=== PATIENT | male | born 1980 | race Caucasian/White ===

== ENCOUNTER 2025-06-03 12:11 | Emergency (ER) | payer BC, SELFPAY ==
--- NOTE | 2025-06-03 12:12 | ED_ITS ---
HPI - General Adult General Date Seen: 06/03/25 Chief complaint: Chest Pain Stated complaint: chest pain, numbing in left foot Time Seen by Provider: 06/03/25 12:12 History of Present Illness HPI narrative: 44 yo M presenting to the ER because of chest pain and left arm discomfort. He is generally healthy except for elevated BMI. No history of high blood pressure, high cholesterol, coronary disease, diabetes. He does have a family history of coronary disease. His father apparently had stents in his 50s. We do not know if his father was was 55 or above or below. Patient notes that for the past couple of days he has had a vague discomfort in the center of his chest that comes and goes. It tends to last for few minutes and then gets better on its. No clear exacerbating or alleviating factors. Does not seem to be related to position, exertion, exercise, or stress. He also notes that when he was laying in bed last night he seemed to be really focused on his chest and he could feel his heart beating. He thinks that was just because he was being vigilant. His heart did not really feel like it was skipping or irregular. This morning at around 9:30 a.m. or 10:00 a.m. he also had a funny feeling of numbness in his left triceps radiating down to his left forearm along with chest discomfort. 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 He also notes that he is fairly physically active when he has to load and unload his truck but does not seem to get chest pain during his activity. He has not had any cough. No shortness of breath. No fever. No recent travel. No swelling in his legs. No history of DVT or PE. Took aspirin 325 mg by mouth at about 10 30 or 11 this morning. Related Data Home Medications ?Medication ?Instructions ?Recorded ?Confirmed No Known Home Medications 03/30/2305/10 Allergies Allergy/AdvReac Type Severity Reaction Status Date / Time No Known Drug Allergies Allergy Verified 06/03/25 12:30 [facility] Medical History (Updated 06/03/25 @ 16:21 by Refugio Weinstein MD) Back problem ?M53.9 - Dorsopathy, unspecified (ICD-10) Family History (Updated 05/26/22 @ 08:24 by Katheryn Carr ~ [facility]) Mother Osteoarthritis Father Diabetes Sister Diabetes Social History (Updated 05/23/22 @ 16:03 by Janeen Cardenas ~ [facility], [facility]) Narrative: former user chewing tobacco Smoking Status: Never smoker Do you use any of these nicotine containing products: None Second hand tobacco smoke exposure: No How often do you have a drink containing alcohol: 4 or more times a week AUDIT-C Alcohol total score: 4 Non-prescribed substance use: denies use Exam Narrative: Exam Narrative: Constitutional: Appears well-developed and well-nourished. Alert. Conversant. Non toxic. HENT: Head: Atraumatic. Nose: Nose normal. Mouth/Throat: Oral mucosa is clear and moist. no trismus. Pharynx normal. Tonsils symmetric. No tonsillar enlargement, erythema, or exudate. Eyes: Conjunctivae normal. EOM normal. Pupils equal, round, and reactive to light. No scleral icterus. Neck: Normal range of motion. Neck supple. No tracheal deviation present. No JVD Cardiovascular: Bradycardic, regular rhythm. No gallop. No friction rub. No murmur heard. Symmetric radial and DP/PT artery pulses Pulmonary/Chest: Effort normal. No stridor. No respiratory distress. No wheezes. No rales. No rhonchi . No tenderness. Abdominal: Soft. No distension. No mass. No tenderness. No rebound. No guarding. Musculoskeletal: RUE: Normal range of motion. No tenderness. No deformity LUE: Normal range of motion. No tenderness. No deformity RLE: Normal range of motion. No edema. No tenderness. No deformity LLE: Normal range of motion. No edema. No tenderness. No deformity Neurological: Alert and oriented to person, place, and time. Normal strength. CN II-VII intact. No sensory deficit. GCS eye subscore is 4. GCS verbal subscore is 5. GCS motor subscore is 6. Normal coordination Skin: Skin is warm and dry. No rash noted. No pallor. Normal capillary refill. Psychiatric: Normal mood. Normal affect. Const: Vital Signs, click to edit/add: Vital Signs - 24 hr 06/03/25 12:26 Temperature 97.4 F L Pulse Rate [Pulse Oximeter] 73 Respiratory Rate 18 Blood Pressure [Ri ght Upper Arm] 117/77 Pulse Oximetry 96 Oxygen Delivery Me thod Room Air Course Vital Signs Vital signs: Initial Vital Signs Temperature 97.4 F L 06/03/25 12:26 Temperature Source Temporal Artery Scan 06/03/25 12:26 Pulse Rate 73 06/03/25 12:26 Respiratory Rate 18 06/03/25 12:26 Blood Pressure 117/77 06/03/25 12:26 Blood Pressure Mean 90 06/03/25 12:26 Blood Pressure Position Sitting 06/03/25 12:26 Pulse Oximetry 96 06/03/25 12:26 Oxygen Delivery Method Room Air 06/03/25 12:26 Vital Signs Temperature 97.4 F L 06/03/25 12:26 Pulse Rate 73 06/03/25 12:26 Respiratory Rate 18 06/03/25 12:26 Blood Pressure 117/77 06/03/25 12:26 Pulse Oximetry 96 06/03/25 12:26 Oxygen Delivery Method Room Air 06/03/25 12:26 Temperature 97.4 F L 06/03/25 12:26 Pulse Rate 73 06/03/25 12:26 Respiratory Rate 18 06/03/25 12:26 Blood Pressure 117/77 06/03/25 12:26 Pulse Oximetry 96 06/03/25 12:26 Oxygen Delivery Method Room Air 06/03/25 12:26 Medical Decision Making MDM Narrative Medical decision making narrative: This patient presents to the ER today for evaluation of chest pain for a couple of days, with Left arm numbness today. Differential was broad. No evidence of palpitations, syncope or other cardiac dysrhythmia. We considered possible ACS, however workup with EKG and troponin is negative. HEART score is 2. Given time since onset of symptoms, we did check an initial and 2 hour delta troponin. Both are normal. I do not think the patient needs to be admitted for further sets of enzymes. Based on his low risk for heart score, at this point does not need immediate stress testing. However would recommend close outpatient follow-up with primary care and if chest pain is persisting, consider further workup. He does not currently have a PCP so recommended follow-up with the [facility]. He will call tomorrow morning to make a follow-up appointment EKG shows no evidence for pericarditis. Clinical presentation not suggestive of myocarditis. Chest x-ray shows no evidence for pneumonia, pneumothorax, pulmonary edema, pleural effusion, rib fracture, cardiomegaly. Mediastinum is normal on the x-ray. The patient has no ripping or tearing pain through to the back and has symmetric pulses on exam, no other acute neuro findings so I doubt aortic dissection. Risk of radiation and contrast exposure would outweigh the benefit of CT angiogram. We considered PE for this patient. Low risk by wells and PERC negative. No wheezing or bronchospasm to suggest COPD/asthma. No signs of chest wall cellulitis, shingles, injury. With reasonable clinical confidence, I think the patient is safe for outpatient follow up. Discussed return precautions. Questions answered. Patient voices comfort with the plan. Lab Data Labs: Lab Results 06/03/25 06/03/25 Range/Units 13:50 15:50 WBC 7.56 (4.50-11.00) K/uL RBC 5.26 (4.30-5.90) m/uL Hgb 15.2 (13.5-17.5) gm/dL Hct 44.5 (37.0-53.0) % MCV 85 (80-100) fL MCH 29 (26-34) pg MCHC 34 (32-36) gm/dL RDW Coeff of Seble 12.0 (11.5-15.5) % Plt Count 190 (140-440) K/uL Neut % (Auto) 65.4 (42.0-72.0) % Lymph % (Auto) 24.5 (20-44) % Talbot % (Auto) 6.7 (0.0-11.0) % Eos % (Auto) 3.0 (0.0-7.0) % Baso % (Auto) 0.3 (0.0-3.0) % Neut # (Auto) 4.94 (1.7-7.0) K/uL Lymph # (Auto) 1.85 (0.90-2.90) K/uL Talbot # (Auto) 0.50 (0.00-0.90) K/UL Eos # (Auto) 0.23 (0.00-0.50) K/uL Baso # (Auto) 0.02 (0.00-0.30) K/uL Abs Immat Gran (auto) 0.01 (0.00-0.30) K/uL Imm/Tot Granulo (auto) 0.1 % Sodium 138 (135-149) mmol/L Potassium 4.2 (3.6-5.1) mmol/L Chloride 103 (96-114) mmol/L Carbon Dioxide 28 (20-32) mmol/L Anion Gap 7 (7-15) mEq/L BUN 16 (5-24) mg/dL Creatinine 1.0 (0.5-1.5) mg/dL Estimated Creat Clear 88.13 Estimated GFR 95 ml/min Glucose 88 (60-115) mg/dL Calcium 9.5 (8.4-10.6) mg/dL POC Troponin I 0.01 0.00 L (0.01-0.04) ng/ml Imaging Data Chest x-ray: Attestation: I have reviewed the pertinent imaging results. My impression: normal cardiac silhouette, clear lungs Radiologist's impression: IMPRESSION: Normal chest radiographs. ECG Data Attestation: I personally reviewed and interpreted this ECG as follows: Interpretation: Normal sinus rhythm Rate 70 MN interval 152 Normal QRS axis. No pathologic Q-waves. No ST segment elevation or depression. QTC 378/QTC 408 No old EKGs for comparison Repeat EKG at 4:07 p.m. Normal sinus rhythm. Rate 72 MN interval 156. Normal QRS axis. No ST segment elevation or depression. QTC 433 Discharge Plan Discharge Clinical Impression: Chest pain Patient Disposition: Home, Self-Care Condition: Stable Instructions: Chest Pain (DC) Additional Instructions: As we discussed, so far your workup is reassuring. No signs of heart attack or other serious cause for chest pain today. However, it is very important for you to have follow-up with you are regular doctor. To make an appointment with the primary care provider here in [place] you can call [phone] to make a ER follow-up visit. Please discuss your chest pain with your regular doctor. In the meantime, if you have any worsening symptoms such as more severe pain, pain that lasts longer, or new symptoms such as shortness of breath, palpitations, dizziness or fainting, fever, please return to the ER right away. Prescriptions: No Action No Known Home Medications Follow Up/Referrals: Provider,Not a Local [Primary Care Provider, Family Practice] Stand Alone Forms: The [employer] Info Instructions
--- OUTSIDE RECORDS SUMMARY | 2025-06-03 12:12 | XMS_ITS | Clinical Summary ---
Author Organization [employer] [facility] Address [address] [place] [id number] Care Team Providers Care Councilperson Name Role Phone Austen, CeliFamily Health Primary Care Provider Unavailable Allergies No known active allergies Medications HYDROcodone-ac etaminophen, 5-325 mg, (NORCO) per tabletIndicati ons:Acute right-sided low back pain without sciatica Take 1-2 tablets by mouth every 6 hours if needed for Pain Max acetaminophen dose: 4000mg in 24 hrs. 20 tablet 7 Active cyclobenzaprin e (FLEXERIL) 10 mg tabletIndicati ons:Acute right-sided low back pain without sciatica Take 1 tablet by mouth 3 times daily if needed for Muscle Spasm. 21 tablet 7 Active predniSONE (DELTASONE) 10 mg tabletIndicati ons:Acute right-sided low back pain without sciatica Take 3 twice daily for 3 days, then 2 BIDx 4 days, then, 1 BIDx 4 days, then QDx4 days 46 tablet 7 Active Active Problems No known active problems Immunizations Immunization Administration Dates Next Due Tdap 06/03/2008 Social History Tobacco Use Types Packs/Day Years Used Date Smoking Tobacco: Never Smokeless Tobacco: Current Chew Tobacco Cessation:Ready to Q uit: Yes; Counseling Given: Yes Comments:three cans a week Alcohol Use Standard Drinks/Week Comments Yes 0 (1 standard drink = 0.6 oz pur e alcohol) occ. 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 Gender Identity Not on file Sexual Orientation Not on file Obstetrics History Last Filed Vital Signs Vital Sign Reading Time Taken Comments Blood Pressure 120/68 03/11/2017 1:11 PM CDT Pulse 82 03/11/2017 1:11 PM CDT Temperature 36.8 C (98.2 F) 03/11/2017 1:11 PM CDT Respiratory Rate 18 03/11/2017 1:11 PM CDT Oxygen Saturation 97% 03/11/2017 1:11 PM CDT Inhaled Oxygen Concentration - - Weight 109.4 kg (241 lb 3.2 oz) 017 12:14 PM RESEARCH AND DEVELOPMENT CHEMIST Height 174 cm (5' 8.5) 11/09/2016 12:1 4 PM RESEARCH AND DEVELOPMENT CHEMIST Body Mass Index 36.14 11/09/2016 12:14 PM RESEARCH AND DEVELOPMENT CHEMIST Plan of Treatment Health Maintenance Due Date Last Done Comments Depression screening for age 12+ 1992 HIV for age 15-65 1995 Hepatitis C screening for ag e 18-79 1998 Hepatitis B series for 19+ ( 1 of 3 - 19+ 3-dose series) 1999 Lipids for age 35-44 2015 BMI (ht and wt on same day) for age 18+ 11/09/2017 11/09/2016 Tetanus booster 06/03/2018 06/03/2008 COVID-19 vaccine series (2023- season) 2024 Influenza Vaccine (#1) 2025 Pneumococcal series for age 6-49 Aged Out No longer eligible based on patient's age to complete this topic Care Teams Councilperson Relationship Specialty Start Date End Date Celi BoyceFamily Health PCP - General 03/11/17
--- OUTSIDE RECORDS SUMMARY | 2025-06-03 12:13 | XMS_ITS | Clinical Summary ---
Author Organization [facility] Address [address], [place] [address] Care Team Providers Care Tooth Cutter Clutch Name Role Phone Clinician, Not Found MD Primary Care Provider Un available Source Comments You are receiving this document as you are listed as the primary care provider,follow-up provider, or the patient has been referred to you for consultation.This is in compliance with the Medicare and[facility] System[facility] EHR Incentive Program,which states Providers who transition their patient to another setting of careor provider of care or refers their patient to another provider of care shouldprovide summary care record for each transition of care or referral. [facility] No known active allergies Medications No known medications Active Problems Problem Noted Date Diagnosed Date Obesity, Class II, BMI 35-39.9 02/06/2024 Tear of right biceps muscle 12/22/2023 Biceps tendinitis on right 12/22/2023 Immunizations Immunization Administration Dates Next Due Fluzone Qiv Multidose Vial 0.25 (6-35 Mos) 08/07 Influenza IIV4 (Quadrivalent) 0.5mL (47952) 06/09 Td (Tdvax) 07/09/1996 Tdap 06/21/2018,06/03/2008 Family History Medical History Relation Name Comments Diabetes, Type II Father Heart Attack Father epilepsy Mother Diabetes, Type II Sister 1 Cancer, Breast Negative Family History Cancer, Colon Negative Family History Cancer, Prostate Negative Family History Relation Name Status Comments Father Alive Mother Alive Sister 1 Alive Sister 2 Alive Sister 3 Alive Social History Tobacco Use Types Packs/Day Years Used Date Smoking Tobacco: Former Smokeless Tobacco: Former Chew Alcohol Use Standard Drinks/Week Comments Yes 0 (1 standard drink = 0.6 oz pur e alcohol) PHQ-2 Answer Date Recorded PHQ-2 Score 0 02/06/2024 Sex and Gender Information Value Date Recorded Sex Assigned at Not on file Legal Sex Male 11:19 AM CDT Gender Identity Not on file Sexual Orientation Not on file Last Filed Vital Signs Vital Sign Reading Time Taken Comments Blood Pressure 109/64 02/19/2024 11:17 AM CDT Pulse 78 02/19/2024 11:17 AM CDT Temperature 36.4 C (97.5 F) 02/19/2024 10:45 AM CDT Respiratory Rate 16 02/19/2024 11:17 AM CDT Oxygen Saturation 90% 02/19/2024 11:17 AM CDT Inhaled Oxygen Concentration - - Weight 107.5 kg (237 lb) 02/06/2024 6:58 AM CDT Height 165.1 cm (5' 5) 02/06/2024 6:58 AM CDT Body Mass Index 39.44 02/06/2024 6:58 AM CDT Plan of Treatment Health Maintenance Due Date Last Done Comments Hep C Screening (Preventive Services) 1980 HIV Screening (Preventive Services) 1996 Adult Preventive Visit 1998 HepB Vaccine (1) 1999 HPV Vaccine (1 - 3-dose SCDM series) 2007 COVID-19 Vaccine ( - 2023-2 5 season) 2024 Influenza Vaccine (#1) 2025 8, 08/07/2016 DTaP/Tdap/Td Vaccine (3 - Tdap) 06/21/2028 06/21/2018, 06/03/2008 Cholesterol 02/05/2029 02/06/2024 Zoster/Shingles Vaccine (1 o f 2) 2030 HepA Vaccine Aged Out No longer eligi ble based on patient's age to complete this topic Hib Vaccine Aged Out No longer eligi ble based on patient's age to complete this topic IPV (Polio) Vaccine Aged Out No longe r eligible based on patient's age to complete this topic MCV4 Vaccine Aged Out No longer eligi ble based on patient's age to complete this topic Meningococcal B Vaccine Aged Out No l onger eligible based on patient's age to complete this topic Pneumococcal Vaccine Aged Out No long er eligible based on patient's age to complete this topic Medical Devices Implanted Type Area Typing Office Worker Device Identifier Shelf Expiration Date Model / Serial / Lot Implant Dist Biceps - [id number] Implanted:Qty: 1 on 02/19/2024 by Tu Gonzalez MD at [facility] DEVICE Right: [employer] 12/07/2027 [id number] / / [id number] Procedures Procedure Name Priority Date/Time Associated Diagnosis Comments LIPID PANEL & DIRECT LDL (IF NEEDED) Routine 02/06/2024 7:19 AM CDT Screening for cholesterol level from Last 3 Months or Most Recently Relevant to Health Maintenance Results * (ABNORMAL) Lipid Panel and Direct LDL(If Needed) (02/06/2024 7:19 AM CDT) [facility] Cholesterol 205(H) 0 - 199 mg/dL 02/06/2024 9:57 AM CDT [facility] Triglyceride 123 <=149 mg/dL 02/06/2024 9:57 AM T [facility] HDL Cholesterol 59 >=40 mg/dL 9:57 AM T [facility] LDL, Calculated 121 <130 mg/dL 9:57 AM [facility] Non HDL Chol, Calculated 146 <=159 mg/dL 02/06/2024 9:57 AM [facility] Cholesterol/HDL Ratio 3.5 <=5.0 02/06/2024 9:57 AM [facility] Hours Fasting 0.0 8 - 12 Hours 02/06/2024 9:57 AM T [facility] Comment:Patient has indicate d a non-fasting status. Blood Venipuncture / Unknown 02/06/2024 7:19 AM CDT 02/06/2024 7:19 AM CDT us Germain Moreno APRN, RADIATION THERAPY TECHNOLOGIST LAB_1 Final Result [facility] [address] [place] [address], [facility] from Last 3 Months or Most Recently Relevant to Health Maintenance Insurance [employer] WC Advance Directives * Full Code (Latest Code Status on File) Date Activated Date Inactivated Comments 02/19/2024 8:45 AM 02/19/2024 1:47 PM Care Teams Tooth Cutter Clutch Relationship Specialty Start Date End Date Clinician, Not Found, [place] [address] PCP - General 12/22/23
[2025-06-03 12:26] VITALS: BP 117/77; PULSE 73; RESP 18; TEMP 36.3; O2SAT 96; BMI 37.0
--- NOTE | 2025-06-03 13:41 | CRLHL7_ITS ---
For Patients: As a result of the Century Cures Act, medical imaging exams and procedure reports are released immediately into your electronic medical record. You may view this report before your referring provider. If you have questions, please contact your health care provider. INDICATION: Chest pain COMPARISON: 09/23/2021 TECHNIQUE: PA and lateral 2 view chest. FINDINGS: Lung volumes are good. No focal or diffuse opacities. No pulmonary edema. No pleural effusion. No pneumothorax. No pneumomediastinum. Normal cardiomediastinal silhouette. Bones: Normal for age. IMPRESSION: Normal chest radiographs. Dictated by Dolores Menendez MD @ 06/03/2025 1:59:28 PM (Electronically Signed)
[2025-06-03 14:01] LABS: Hematocrit 44.5 % (37.0-53.0); Hemoglobin* 15.2 gm/dL (13.5-17.5); Immature Granulocytes Abs Auto 0.01 K/uL (0.00-0.30); Immature Granulocytes Pct Auto 0.1 %; Lymphocytes Absolute Auto 1.85 K/uL (0.90-2.90); Mean Corpuscular HGB Conc 34 gm/dL (32-36); Mean Corpuscular Hemoglobin 29 pg (26-34); Mean Corpuscular Volume 85 fL (80-100); RDW Coefficient of Variation % 12.0 % (11.5-15.5); Red Blood Count 5.26 m/uL (4.30-5.90); White Blood Count* 7.56 K/uL (4.50-11.00)
[2025-06-03 14:03] LABS: Troponin, Point-of-Care* 0.01 ng/ml (0.01-0.04)
[2025-06-03 14:10] LABS: Chloride* 103 mmol/L (96-114)
[2025-06-03 14:11] LABS: Potassium* 4.2 mmol/L (3.6-5.1); Slide Review Reflex No; Sodium* 138 mmol/L (135-149)
[2025-06-03 14:14] LABS: Anion Gap 7 mEq/L (7-15); Blood Urea Nitrogen* 16 mg/dL (5-24); Calcium* 9.5 mg/dL (8.4-10.6); Carbon Dioxide* 28 mmol/L (20-32); Creatinine* 1.0 mg/dL (0.5-1.5); Est. Creatinine Clearance* 88.13; Estimated Glomerular Filt Rate 95 ml/min; Glucose* 88 mg/dL (60-115)
[2025-06-03 16:14] LABS: Troponin, Point-of-Care* 0.00 ng/ml (0.01-0.04)
== END 2025-06-03 16:38 | disposition home or self-care (01) ==
PROVIDERS: Emergency Provider Emergency Medicine
DX: R07.9 Chest pain, unspecified (principal)
CPT/HCPCS: 36415; 71046; 80048; 84484; 85025; 93005; 99283; 99284; 99285

== ENCOUNTER 2025-06-05 14:06 | Outpatient (CLI) | payer BC, SELFPAY | END 2025-06-05 14:07 | disposition home or self-care (01) | LOC: NFLDREF 06-09 14:02 | PROVIDERS: Visit Provider Family Medicine | DX: Z00.00 Encounter for general adult medical examination without abnormal findings (principal); R07.9 Chest pain, unspecified; Z13.6 Encounter for screening for cardiovascular disorders; Z13.29 Encounter for screening for other suspected endocrine disorder | CPT/HCPCS: 80053; 80061; 84443 ==

== ENCOUNTER 2025-06-24 10:33 | Outpatient (CLI) | payer BC, SELFPAY ==
[2025-06-24 11:17] VITALS: BP 146/70; PULSE 97; RESP 20; O2SAT 97
--- NOTE | 2025-06-24 13:53 | P.STN_ITS ---
Stress Test Note Date Date of test: 06/24/25 Providers Primary care provider: Vic Ramirez Stress test physician: Gianluca Herbert Stress Test Note Stress test ordered: Exercise Stress Test Indication for test: Chest pain Results discussion: This pleasant gentleman presents for the above test after discussion the risks benefits and side effects he would like to proceed, cardiac stress test medical history form is reviewed, pretest EKG shows normal sinus rhythm with a ventricular rate of 60 blood pressure 129/83, no acute ST wave changes are noted. Standard James protocol is employed over Spencer minute period, he achieved a metabolic equivalent of 12.1 Mets with a maximum heart rate of 180. Which is 120% of the maximum review of the tracing shows no ST wave changes suggestive of ischemia notable. Subjectively he had no chest pain shortness of breath conditioning was felt to be good Impression: Objectively and subjectively negative electrographic treadmill stress test Follow up suggested: Patient is discharged from this facility. There were no complications, follow- up clinical correlation will be needed with referring physician.
== END 2025-06-24 10:34 | disposition home or self-care (01) ==
LOC: STRESS 10:33
PROVIDERS: PCP Family Medicine; Visit Provider Family Medicine
DX: R07.9 Chest pain, unspecified (principal)
CPT/HCPCS: 93016; 93017